=== PATIENT | female | born 1945 | race Caucasian/White ===

== ENCOUNTER 2016-10-10 13:17 | Emergency (ER) | payer MEDICARE ==
[~2016-10-10] VITALS: Ht 170.2 cm; Wt 90.0 kg
[~2016-10-10 13:17] MED LIST: ALBU1AER INH; ALPR-138 PO; ASPI81TA82 PO; CARI350T19 PO; CIPR500T4 PO; CYCLOPHOSPHAMIDE PO; DEXA4TAB PO; DUONSOL2 NEB; FE T325T PO; LASI20TA PO; LORTA5 PO; MAGN200T2 PO; METO25 PO; OMEP40CA2 PO; ONDA4TAB7 PO; PARO10TA OR; PRED20 PO; PROC1TAB8 PO; SIMV40 PO; SPIR25TA PO; SYMB160A INH
--- NOTE | 2016-10-10 13:33 | PD ---
HPI Chief Complaint: altered mental status, respiratory distress. Time Seen by Provider: 13:31 Travel History International Travel<30 days: No Contact w/Intl Traveler<30days: No History of Present Illness HPI Patient is a 71-year-old female who is end-stage COPD on home oxygen presents emergency Department with agitation and confusion. Per family this is been increasing over the past few days. Apparently the patient has a history of chronic back pain was started on opiates and muscle relaxers. Her power of trial attorney Ke states that she's been taking his medications been increasingly agitated. They called her physician Dr. Madrigal recommended that she come the emergency department. EMS had reported the patient was DNR/DNI. Family is concerned that she may have developed pneumonia versus dehydration and requesting inpatient for IV hydration. The patient is agitated and confused on arrival and cannot provide additional history on her own. PFSH Past Medical History Anemia: Yes Asthma: Yes Autoimmune Disease: No Anxiety: Yes (PANIC ATTACKS) Depression: No Heart Rhythm Problems: No Cancer: Yes (MULTIPLE MYELOMA DX 09/2012) Cardiovascular Problems: Yes High Cholesterol: Yes Chemotherapy: Yes Chest Pain: No Congestive Heart Failure: No COPD: Yes Cerebrovascular Accident: No Diabetes: No Diminished Hearing: No Endocrine: No Gastrointestinal Disorders: Yes GERD: Yes Genitourinary: No Headaches: No Hiatal Hernia: No Hypertension: Yes Immune Disorder: No Kidney Stones: No Musculoskeletal: Yes Neurologic: No Psychiatric: No Reproductive: No Respiratory: Yes Migraines: No Radiation Therapy: No Renal Failure: No Seizures: No Shingles: Yes Sickle Cell Disease: No Thyroid Disease: No Ulcer: Yes Menopausal: Yes Past Surgical History Abdominal Surgery: No AICD: No Arteriovenous Shunt: No Cardiac Surgery: No Ear Surgery: No Endocrine Surgery: Yes (TONSILLECTOMY) Eye Surgery: No Genitourinary Surgery: No Gynecologic Surgery: No Insulin Pump: No Joint Replacement: No Neurologic Surgery: Yes (FUSED DISK IN BACK) Oral Surgery: No Pacemaker: No Thoracic Surgery: No Tonsillectomy: Yes Other Surgery: Yes Social History Alcohol Use: No (QUIT 1 1/2 YRS AGO) Tobacco Use: No (quit 1 year ago) Substance Use: No Allergies-Medications (Allergen,Severity, Reaction): Coded Allergies: No Known Allergies (Verified , 10/10/16) Reported Meds & Prescriptions Reported Meds & Active Scripts Active Reported Losartan (Losartan Potassium) 25 Mg Tab 25 Mg PO DAILY Flexeril (Cyclobenzaprine HCl) 10 Mg Tab 10 Mg PO Q8HR PRN Caltrate 600+D Plus Tripp 600-800 mg-Unit (Calcium Carbonate-Vitamin D W/) 1 Tab Tab 2 Tab PO AC DINNER Morphine IR (Morphine Sulfate) 15 Mg Tab 15 Mg PO Q6HR PRN Aldactone (Spironolactone) 25 Mg Tab 25 Mg PO DAILY Simvastatin 40 Mg Tab 40 Mg PO HS Prednisone 5 Mg Tab 5 Mg PO DAILY Paroxetine (Paroxetine HCl) 10 Mg Tab 10 Mg PO DAILY Metoprolol Tartrate 25 Mg Tab 25 Mg PO BID Magnesium Oxide 400 Mg Tab 200 Mg PO DAILY Duoneb (Ipratropium-Albuterol Neb) 0.5-2.5 Mg/3 Ml Neb 1 Nebule INH Q6HR NEB Lasix (Furosemide) 40 Mg Tab 40 Mg PO DAILY Ferrous Sulfate DR (Ferrous Sulfate) 325 Mg Tabdr 325 Mg PO DAILY Symbicort Inh (Budesonide/Formoterol Fumarate) 160-4.5 Mcg/Act Aero 2 Puff INH BID Aspir-81 (Aspirin) 81 Mg Tabdr 81 Mg PO DAILY Review of Systems ROS Limitations: Altered Mental Status Physical Exam Narrative GENERAL: Well-developed well-nourished, belly breathing, on nonrebreather, agitated. SKIN: Focused skin assessment warm/dry. HEAD: Atraumatic. Normocephalic. EYES: Pupils equal and round. No scleral icterus. No injection or drainage. ENT: No nasal bleeding or discharge. Mucous membranes pink and moist. NECK: Trachea midline. No JVD. CARDIOVASCULAR: Regular rate and rhythm. No murmur appreciated. RESPIRATORY: Increased respiratory work of breathing, decreased air entry. No obvious rales or rhonchi. Breath sounds equal bilaterally. GASTROINTESTINAL: Abdomen soft, non-tender, nondistended. Hepatic and splenic margins not palpable. MUSCULOSKELETAL: No obvious deformities. No clubbing. No cyanosis. No edema. NEUROLOGICAL: Awake and alert. No obvious cranial nerve deficits. Motor grossly within normal limits. Normal speech. PSYCHIATRIC: Appropriate mood and affect; insight and judgment normal. Data Data Last Documented VS Vital Signs Date Time Temp Pulse Resp B/P Pulse Ox O2 Delivery O2 Flow Rate FiO2 10/10/16 18:21 90 17 100/56 99 2 10/10/16 16:00 Nasal Cannula 10/10/16 13:34 97.8 Orders Electrocardiogram (10/10/16 13:31) Complete Blood Count With Diff (10/10/16 13:31) Comprehensive Metabolic Panel (10/10/16 13:31) Chest, Single Ap (10/10/16 13:31) Ecg Monitoring (10/10/16 13:31) Iv Access Insert/Monitor (10/10/16 13:31) Oximetry (10/10/16 13:31) Oxygen Administration (10/10/16 13:31) Sodium Chloride 0.9% Flush (Ns Flush) (10/10/16 13:45) Blood Gas Venous (Vbg) (10/10/16 13:31) Lorazepam Inj (Ativan Inj) (10/10/16 14:00) Blood Culture (10/10/16 14:05) Lactic Acid (10/10/16 14:05) Urinalysis - C+S If Indicated (10/10/16 15:01) Urine Culture (10/10/16 15:01) Cath For Specimen (10/10/16 15:01) Ceftriaxone Inj (Rocephin Inj) (10/10/16 15:15) Azithromycin Inj (Zithromax Inj) (10/10/16 15:15) Hospice Consult (10/10/16 15:25) Labs Laboratory Tests Test 10/10/16 10/10/16 10/10/16 10/10/16 13:34 13:40 14:15 15:30 Blood Gas Puncture Site IV Blood Gas Patient Temperature 98.6 Venous Blood pH 7.34 Venous Blood Partial Pressure 62 mmHg CO2 Venous Blood Partial Pressure 50 mmHg O2 Venous Blood HCO3 32 mmol/L Venous Blood Oxygen Saturation 79 % Venous Blood Oxygen Content 12.5 Vol % Venous Blood Base Excess 6.5 mmol/L Oxygen Delivery Device Non-Rebreathing Mask Blood Gas Liter Flow 15 L/M White Blood Count 19.1 TH/MM3 Red Blood Count 3.56 MIL/MM3 Hemoglobin 11.3 GM/DL Hematocrit 35.5 % Mean Corpuscular Volume 99.8 FL Mean Corpuscular Hemoglobin 31.7 PG Mean Corpuscular Hemoglobin 31.8 % Concent Red Cell Distribution Width 14.0 % Platelet Count 410 TH/MM3 Mean Platelet Volume 8.2 FL Neutrophils (%) (Auto) 83.6 % Lymphocytes (%) (Auto) 6.0 % Monocytes (%) (Auto) 9.7 % Eosinophils (%) (Auto) 0.3 % Basophils (%) (Auto) 0.4 % Neutrophils # (Auto) 15.9 TH/MM3 Lymphocytes # (Auto) 1.1 TH/MM3 Monocytes # (Auto) 1.9 TH/MM3 Eosinophils # (Auto) 0.1 TH/MM3 Basophils # (Auto) 0.1 TH/MM3 CBC Comment DIFF FINAL Differential Comment Sodium Level 138 MEQ/L Potassium Level 4.1 MEQ/L Chloride Level 100 MEQ/L Carbon Dioxide Level 30.0 MEQ/L Anion Gap 8 MEQ/L Blood Urea Nitrogen 21 MG/DL Creatinine 1.66 MG/DL Estimat Glomerular Filtration 30 ML/MIN Rate Random Glucose 153 MG/DL Calcium Level 9.2 MG/DL Total Bilirubin 0.6 MG/DL Aspartate Amino Transf 85 U/L (AST/SGOT) Alanine Aminotransferase 27 U/L (ALT/SGPT) Alkaline Phosphatase 101 U/L Total Protein 7.0 GM/DL Albumin 2.9 GM/DL Lactic Acid Level 1.5 mmol/L Urine Color YELLOW Urine Turbidity CLEAR Urine pH 5.5 Urine Specific [place] 1.021 Urine Protein 30 mg/dL Urine Glucose (UA) NEG mg/dL Urine Ketones NEG mg/dL Urine Occult Blood SMALL Urine Nitrite NEG Urine Bilirubin NEG Urine Urobilinogen LESS THAN 2.0 MG/DL Urine Leukocyte Esterase NEG Urine RBC 3 /hpf Urine WBC 2 /hpf Urine Squamous Epithelial 1 /hpf Cells Urine Hyaline Casts 8 /lpf Urine Mucus FEW /lpf Microscopic Urinalysis Comment CULT NOT INDICATED MDM Medical Decision Making Medical Screen Exam Complete: Yes Emergency Medical Condition: Yes Interpretation(s) EKG shows sinus tachycardia rate of 108, normal axis normal R-wave progression. No concerning ST segment changes. Abnormal EKG. Differential Diagnosis PE, COPD, electrolyte abnormality, medication reaction. Narrative Course Patient roomed emergency department, she does have increased work of breathing on arrival but is saturating well on nonrebreather, she was downgraded to room air on her agitated protests that she did not want anything done to her. She took off her nonrebreather and was placed on nasal cannula. She remained with very difficult respirations. She was given Ativan for comfort and on reassess seems more comfortable but again does have very difficult respirations. Miss Ke Vasquez identified herself as power of trial attorney and indeed we were able to find power of trial attorney documentations and her EMR for this patient stating her as power of trial attorney. Miss Vasquze informs me that the patient has had 3 prior episodes of this respiratory distress needs time she seems to bounce back. They're concerned because with the increased pain medicine and muscle relaxers at the patient may have developed pneumonia or dehydration. On the last visit with their primary care physician Dr. Madrigal, he had apparently recommended that the next time this happens the patient come to the emergency department because he/she may not be able to help her anymore. I had considered hospice in the past but never signed up. Miss Vasquez reiterates to me that the patient's wishes were for DNR/DNI. I do not believe the patient is able to make her own decisions at this time given her respiratory distress. After an extensive conversation with Mrs. Vasquez regarding the patient's current status they would like to speak with hospice consult. At time hospice consult was ordered, the patient's labs her to return should show white blood count of 19,000, think this is more likely for medications patient has not been febrile. The chest x-ray was performed and showed Last 24 hours Impressions Chest X-Ray 10/10/16 1331 Signed Impressions: Service Date/Time: , October 10, 2016 13:34 - CONCLUSION: 1. Mild diffuse interstitial prominence may reflect mild positive fluid balance. 2. Left lower lobe atelectasis/scarring. Paul Brasher MD I do not see an overt large consolidation. There may be urinary tract infection but were still waiting for urine to be sent. Blood cultures were drawn and sent and she was started on Rocephin and azithromycin. Up apparent patient for her eventual outcome of either hospice enrollment or admission to the hospital the patient did have consultation with hospice and through her power of trial attorney has opted for hospice care center at this time. They decided appropriate decision for the patient as she is what appears to be end-stage COPD on home oxygen dependent on it. Arrangements were being made for transportation to the hospice care center. Diagnosis Primary Impression: Delirium Additional Impression: End stage COPD Disposition: 51 HOSPICE/MED FACILITY Condition: Stable Maurilio Walker MD Oct 10, 2016 13:33
[2016-10-10 13:34] VITALS: BP_SYST 145; BP_SYST 146; BP_DIAS 60; PULSE 109; RESP 38; TEMP 97.8; O2SAT 99
[2016-10-10 13:41] VITALS: O2SAT 99
[2016-10-10] MEDS ORDERED: SODIUM CHLORIDE 0.9% FLUSH 10 ML FLUSH IVF PRN (13:45)
[2016-10-10 14:00] VITALS: BP 154/72; PULSE 101; RESP 28; O2SAT 99
[2016-10-10] MEDS ORDERED: LORazepam 2 MG/ML VIAL IV PUSH ONE (14:00)
[2016-10-10 14:13] LABS: AUTOMATED NEUTROPHIL # 15.9 TH/MM3 (1.8-7.7); BASOPHIL # 0.1 TH/MM3 (0-0.2); BASOPHIL % 0.4 % (0.0-2.0); EOSINOPHIL # 0.1 TH/MM3 (0-0.4); EOSINOPHIL % 0.3 % (0.0-4.0); HEMATOCRIT 35.5 % (35.0-46.0); HEMO FLAGS DIFF FINAL; LYMPHOCYTE # 1.1 TH/MM3 (1.0-4.8); MEAN CELL VOLUME 99.8 FL (80.0-100.0); MEAN CORPUSCULAR HEMOGLOBIN 31.7 PG (27.0-34.0); MEAN CORPUSCULAR HGB CONC 31.8 % (32.0-36.0); MONO % 9.7 % (0.0-8.0); NEUT % 83.6 % (16.0-70.0); PLATELET COUNT 410 TH/MM3 (150-450); RED BLOOD COUNT 3.56 MIL/MM3 (4.00-5.30); WHITE BLOOD COUNT 19.1 TH/MM3 (4.0-11.0)
[2016-10-10 14:14] LABS: BLOOD GAS VENOUS BASE EXCESS 6.5 mmol/L (-2-2); BLOOD GAS VENOUS HCO3 32 mmol/L (22-26); BLOOD GAS VENOUS O2 CONTENT 12.5 Vol % (9.0-17.0); BLOOD GAS VENOUS O2 HGB SAT 79 % (70-76); BLOOD GAS VENOUS PCO2 62 mmHg (44-48); BLOOD GAS VENOUS PO2 50 mmHg (35-40); BLOOD GAS VENOUS pH 7.34 (7.360-7.400); TEMP CORR TO 98.6
[2016-10-10 14:15] LABS: CRITICAL VALUE YES; DRAW SITE IV; LITER FLOW 15 L/M; STAT YES
--- NOTE | 2016-10-10 14:28 | RADRPT ---
EXAM DATE/TIME: 10/10/2016 13:34 [facility] COMPARISON: CHEST SINGLE AP, April 15, 2013, 0:52. INDICATIONS : Short of breath, back pain. MEDICAL HISTORY : Chronic obstructive pulmonary disease. SURGICAL HISTORY : None. ENCOUNTER: Initial ACUITY: 1 day PAIN SCORE: Non-responsive. LOCATION: Bilateral chest FINDINGS: One mild left basilar linear airspace disease likely reflecting atelectasis/scarring. Diffuse interst itial prominence. Cardiomediastinal contours are stable. Cement augmentation changes noted in the low er thoracic spine. CONCLUSION: 1. Mild diffuse interstitial prominence may reflect mild positive fluid balance. 2. Left lower lobe atelectasis/scarring. Paul Brasher MD on October 10, 2016 at 14:23 Board Certified Radiologist. This report was verified electronically.
[2016-10-10 14:32] LABS: ALKALINE PHOSPHATASE 101 U/L (45-117); TOTAL BILIRUBIN ADULT 0.6 MG/DL (0.2-1.0)
[2016-10-10 14:33] LABS: ALT (GPT) 27 U/L (10-53); ANION GAP 8 MEQ/L (5-15); AST (GOT) 85 U/L (15-37); BLOOD UREA NITROGEN 21 MG/DL (7-18); CHLORIDE 100 MEQ/L (98-107); GLOMERULAR FILTRATION RATE 30 ML/MIN (>89); POTASSIUM 4.1 MEQ/L (3.5-5.1)
[2016-10-10 14:34] LABS: SODIUM (NA) 138 MEQ/L (136-145)
[2016-10-10 15:00] VITALS: BP 144/75; PULSE 87; RESP 22; O2SAT 99
[2016-10-10] MEDS ORDERED: cefTRIAXone INJ 1,000 MG in SODIUM CHLORIDE 0.9% INJ 100 ML IV ONE (15:15)
[2016-10-10] MEDS ORDERED: AZITHROMYCIN INJ 500 MG in SODIUM CHLOR 0.9% 250 ML INJ 250 ML IV ONE (15:15)
[2016-10-10] MEDS ORDERED: IPRASOL INH (15:18)
[2016-10-10] MEDS ORDERED: METO25TA3 PO (15:18)
[2016-10-10] MEDS ORDERED: SPIR25 PO (15:18)
[2016-10-10] MEDS ORDERED: PRED5TAB PO (15:18)
[2016-10-10] MEDS ORDERED: FERR325T2 PO (15:18)
[2016-10-10] MEDS ORDERED: ASPI81TA81 PO (15:18)
[2016-10-10] MEDS ORDERED: SIMV40TA PO (15:18)
[2016-10-10] MEDS ORDERED: SYMB160A INH (15:18)
[2016-10-10] MEDS ORDERED: PARO1TAB71 PO (15:18)
[2016-10-10] MEDS ORDERED: FURO1TAB60 PO (15:18)
[2016-10-10] MEDS ORDERED: MAGN400T PO (15:18)
[2016-10-10] MEDS ORDERED: LOSA25TA PO (15:23)
[2016-10-10] MEDS ORDERED: CYCL1TAB29 PO (15:23)
[2016-10-10] MEDS ORDERED: CALTTAB6 PO (15:23)
[2016-10-10] MEDS ORDERED: MSIR15 PO (15:23)
[2016-10-10 15:44] LABS: BLOOD, URINE SMALL (NEG); COMMENT (UR) CULT NOT INDICATED; CULTURE IF INDICATED CULT NOT INDICATED; GLUCOSE,URINE NEG (NEG); HYALINE CAST, URINE 8 /lpf (RARE); KETONE, URINE NEG (NEG); MUCUS URINE FEW /lpf (OCC); NITRITE,URINE NEG (NEG); PH, URINE 5.5 (5.0-8.5); SQUAMOUS EPITHELIAL CELL URINE 1 /hpf (0-5); URINE COLOR YELLOW (YELLW/STRAW)
[2016-10-10 16:00] VITALS: BP 138/75; PULSE 87; RESP 20; O2SAT 99
--- NOTE | 2016-10-10 17:11 | EKG ---
Date Performed: 10/10/2016 Time Performed: 13:46:34 PTAGE: 71 years EKG: Baseline artifact present SINUS TACHYCARDIA Nonspecific T wave changes Compared to prior el ectrocardiogram, Nonspecific T wave changes are more marked ABNORMAL ECG PREVIOUS TRACING : 04/15/2013 00.43 DOCTOR: Blaine Bartlett Interpretating Date/Time 10/10/2016 17:11:00
[2016-10-10 18:21] VITALS: BP 100/56; PULSE 90; RESP 17; O2SAT 99
== END 2016-10-10 19:17 | disposition short-term general hospital (02) ==
LOC: NEPC 13:17 → NEPD 19:17
DX: R41.0 Disorientation, unspecified (principal); J44.9 Chronic obstructive pulmonary disease, unspecified; R00.0 Tachycardia, unspecified; R94.31 Abnormal electrocardiogram [ECG] [EKG]; D64.9 Anemia, unspecified; J45.909 Unspecified asthma, uncomplicated; I10 Essential (primary) hypertension; K21.9 Gastro-esophageal reflux disease without esophagitis; E78.00 Pure hypercholesterolemia, unspecified
CPT/HCPCS: 71010; 80053; 81001; 82805; 83605; 85025; 87040; 87086; 93005; 96365; 96367; 96375; 99285; J0456; J0696; J2060; J7050; P9612